=== PATIENT | male | born 1995 | race Caucasian/White ===

== ENCOUNTER 2019-07-07 00:48 | Emergency (ER) | payer MEDICAID, OTHER ==
[~2019-07-07] VITALS: Ht 170.2 cm; Wt 65.8 kg
[2019-07-07 00:54] VITALS: BP_SYST 128
[2019-07-07 01:19] VITALS: BP_SYST 128
== END 2019-07-07 01:19 | disposition home or self-care (01) ==
LOC: SED 00:48
DX: Z02.83 Encounter for blood-alcohol and blood-drug test (principal)